=== PATIENT | male | born 1990 | race Caucasian/White ===

== ENCOUNTER 2025-03-28 07:32 | Day surgery (SDC) | payer BC ==
[2025-03-25 09:21] VITALS: BMI 28.7
[2025-03-28] MEDS ORDERED: PROPOFOL 20 ML ONE (08:33)
[2025-03-28] MEDS ORDERED: Lidocaine 1% PF 5 ML VIAL ONE (08:33)
[2025-03-28] MEDS ORDERED: SUCCINYLCHOLINE/SOD CL,ISO/PF 200 MG/10 ML SYRINGE FS ONE (08:33)
[2025-03-28] MEDS ORDERED: Ondansetron PF 4 MG/2 ML Vial ONE (08:33)
[2025-03-28] MEDS ORDERED: Tranexamic Acid 1,000 MG/10 ML VIAL ONE (10:12)
[2025-03-28] MEDS ORDERED: HYDROcodone/Acetaminophen 5/325 mg Tablet ONE (11:26)
== END 2025-03-28 11:37 | disposition home or self-care (01) ==
LOC: CSHSDC 07:32
PROVIDERS: ATTEND Otolaryngology
PROC: 0C5R8ZZ Destruction of Epiglottis, Via Natural or Artificial Opening Endoscopic (ICD-10-PCS; principal; 2025-03-28)
DX: C32.0 Malignant neoplasm of glottis (principal); Z87.891 Personal history of nicotine dependence; Z90.49 Acquired absence of other specified parts of digestive tract
CPT/HCPCS: 88305; 88341; 88342; J0169; J1100; J2250; J2704; J3301